=== PATIENT | male | born 1975 | race Caucasian/White ===

== ENCOUNTER 2022-09-24 13:27 | Emergency (ER) | payer OTHER ==
[2022-09-24 13:40] VITALS: BP 138/89
--- NOTE | 2022-09-24 14:05 | XRAY Report ---
PROCEDURE: Chest 2 View X-Ray INDICATIONS: cough/soa TECHNIQUE: 2 views of the chest were acquired. COMPARISON: None. FINDINGS: Surgical changes and devices: None. Lungs and pleura: No pleural effusions or pneumothorax. Lungs are clear. Mediastinum: Mediastinal contours are normal. Heart size is normal. Bones and chest wall: No suspicious bony abnormalities. Soft tissues appear unremarkable. IMPRESSION: Chest without acute cardiopulmonary abnormalities or focal airspace disease. Reviewed by: Daniel Madden MD on 09/24/2022 2:04 PM PST Approved by: Daniel Madden MD on 09/24/2022 2:04 PM PST Station ID: [id number]
--- NOTE | 2022-09-24 15:55 | ED Physician Documentation ---
PD HPI URI - Stated complaint Stated Complaint: TROUBLE BREATHING - Chief complaint Chief Complaint: Resp - History obtained from History obtained from: Patient - History of Present Illness Timing - onset: Today Pain level max: 0 Pain level now: 0 Associated symptoms: Nasal congestion, Rhinorrhea, Dry cough, Dyspnea. No: Chills, Chest pain, NVD, Bilateral edema Contributing factors: Sick contact, COPD / asthma Improves by: Rest Worsened by: Activity, Breathing - Additional information Additional information: Patient is a 47-year-old male who presents to the emergency department stating he has had increased work of breathing over the past several weeks. He has had coughing and congestion. Has used inhalers in the past but does not have one now. Patient states that he did use marijuana and felt like this did help him breathe better. He has not having any fevers or chills. He states that the coughing keeps him up at night. Concerned about potential pneumonia. Review of Systems Constitutional: denies: Fever, Chills Throat: denies: Sore throat Cardiac: denies: Chest pain / pressure, Palpitations Respiratory: reports: Dyspnea, Cough, Wheezing GI: denies: Abdominal Pain, Nausea, Vomiting, Diarrhea Skin: denies: Rash Musculoskeletal: denies: Neck pain, Back pain Neurologic: denies: Headache PD PAST MEDICAL HISTORY - Past Medical History Past Medical History: No - Present Medications Home Medications: Ambulatory Orders Medication Instructions Recorded Confirmed Albuterol Sulf [Ventolin Hfa 1 - 2 puffs INH Q4HR PRN #1 each 09/24/22 Inhaler] Benzonatate [Tessalon] 200 mg PO TID PRN #30 cap 09/24/22 predniSONE [Deltasone] 10 mg PO [id number] #42 tab 09/24/22 - Allergies Allergies/Adverse Reactions: Allergies Allergy/AdvReac Type Severity Reaction Status Date / Time No Known Drug Allergies Allergy Verified 09/24/22 13:40 - Social History Does the pt smoke?: No Smoking Status: Never smoker PD ED PE NORMAL - Vitals Vital signs reviewed: Yes - General General: Alert and oriented X 3, No acute distress - HEENT HEENT: PERRL, Ears normal, Moist mucous membranes, Pharynx benign - Neck Neck: Supple, no meningeal sign - Cardiac Cardiac: RRR, Strong equal pulses - Respiratory Respiratory: No respiratory distress, Other (Mild wheezing bilaterally. No respiratory distress. No accessory muscle use) - Derm Derm: Warm and dry, No rash - Neuro Neuro: Alert and oriented X 3 - Psych Psych: Normal mood, Normal affect Results - Vitals Vitals: Vital Signs - 24 hr 09/24/22 09/24/22 13:37 16:04 Temperature 36.0 C L Heart Rate 79 84 Respiratory 20 16 Rate Blood Pressure 138/89 H O2 Saturation 96 Oxygen O2 Source Room air - Labs Labs: Laboratory Tests 09/24/22 13:43 SARS-CoV-2 (PCR) NOT DETECTED - Rads (name of study) Chest x-ray Radiology: Final report received, See rad report PD Medical Decision Making - ED course Complexity details: reviewed results, re-evaluated patient, considered differential, d/w patient ED course: No acute findings on x-ray. Patient is well-appearing, nontoxic. No hypoxia. No respiratory distress. Feels better after steroids and nebulizer treatment. Will prescribe an inhaler and cough medication for home. We will place him on a steroid taper as well. No indication for antibiotics. He states he does take lisinopril but did stop it for about a month and the cough did not change. Patient counseled regarding signs and symptoms for which I believe and urgent re-evaluation would be necessary. Patient with good understanding of and agreement to plan and is comfortable going home at this time This document was made in part using voice recognition software. While efforts are made to proofread this document, sound alike and grammatical errors may occur. Departure - Departure Disposition: 01 Home, Self Care Clinical Impression: Viral URI Condition: Good Instructions: ED URI Viral Follow-Up: your,doctor in 1week [Other] Prescriptions: Albuterol Sulf [Ventolin Hfa Inhaler] 1 - 2 puffs INH Q4HR PRN #1 each PRN Reason: Shortness Of Air/Wheezing predniSONE [Deltasone] 10 mg PO [id number] #42 tab Benzonatate [Tessalon] 200 mg PO TID PRN #30 cap PRN Reason: Cough Comments: Please follow-up with your doctor for further care. Return if you worsen. Your x-ray does not show any evidence of pneumonia today. Your prescriptions were sent to the [facility] pharmacy. Discharge Date/Time: 09/24/22 16:17
[2022-09-24] MEDS: IPRATROPIUM/ALBUTEROL 3 ML NEB INH STA (16:02)
[2022-09-24] MEDS: predniSONE 20 MG TABLET PO STA (16:04)
== END 2022-09-24 16:17 | disposition home or self-care (01) ==
LOC: ED 13:27
DX: J06.9 Acute upper respiratory infection, unspecified (principal); Z20.822 Contact with and (suspected) exposure to COVID-19
CPT/HCPCS: 71046; 87635; 94640; 99282; 99284; J7512